=== PATIENT | female | born 1980 | race Asian ===

== ENCOUNTER 2020-03-24 07:31 | Outpatient (REF) | payer OTHER, SELFPAY ==
[2020-03-24 11:08] LABS: MANUAL DIFF FLAG NO
[2020-03-24 11:15] LABS: Basophils Absolute Auto 0.1 X10*3/uL (0.0-0.2); Basophils Percent Auto 0.7 % (0-2); Eosinophils Absolute Auto 0.3 X10*3/uL (0.0-0.4); Eosinophils Percent Auto 2.8 % (0-4); Hematocrit 39.1 % (37-47); Hemoglobin 12.7 g/dl (12.0-16.0); Imm Gran Abs Auto 0.05 X10*3/uL (0.00-0.03); Imm Gran Pct Auto 0.5 % (0.0-0.4); Lymphocytes Absolute Auto 3.5 X10*3/uL (1.2-4.9); Lymphocytes Percent Auto 32.6 % (20-40); Mean Corpuscular HGB Conc 32.5 g/dl (31.0-35.0); Mean Platelet Volume 10.6 fL (9.4-12.3); Monocytes Absolute Auto 0.7 X10*3/uL (0.1-1.2); Monocytes Percent Auto 6.1 % (2-11); Neutrophils Absolute Auto 6.2 X10*3/uL (2.0-8.3); Neutrophils Percent Auto 57.3 % (45-73); Platelet Count 259 X10*3/uL (160-400); Red Blood Count 4.89 X10*6/uL (4.20-5.50); Red Cell Distribution Width 12.3 % (11.0-16.0); White Blood Count 10.7 X10*3/uL (4.8-10.8)
[2020-03-24 11:37] LABS: Alanine Aminotransferase 17 U/L (0-31); Albumin Level 4.2 g/dL (3.5-5.0); Alkaline Phosphatase 63 U/L (39-117); Anion Gap 13 (12-20); Aspartate Amino Transferase 20 U/L (5-31); Bilirubin Total 0.8 mg/dL (0.0-1.0); Blood Urea Nitrogen 9 mg/dL (9-16); Calcium 8.5 mg/dL (8.4-10.2); Carbon Dioxide 26 mmol/L (22-29); Chloride 103 mmol/L (96-108); Cholesterol 188 mg/dL; Estimated Glomerular Filt Rate > 60; Glucose Fasting 96 mg/dL (60-99); HDL Cholesterol 42 mg/dL; LDL Cholesterol Calculated 122 mg/dl; Potassium 4.2 mmol/l (3.3-5.1); Sodium 138 mmol/L (135-145); Total Protein 7.3 g/dL (6.5-8.0); Triglycerides 120 mg/dL
[2020-03-24 11:59] LABS: TSH reflex Free T4 1.36 mIU/mL (0.32-4.0)
== END 2020-03-24 07:32 | disposition home or self-care (01) ==
LOC: HO.HMGCLDS 07:31
PROVIDERS: PCP Internal Medicine; Visit Provider Internal Medicine
DX: Z00.01 Encounter for general adult medical examination with abnormal findings (principal); E66.3 Overweight
CPT/HCPCS: 36415; 80053; 80061; 84443; 85025

== ENCOUNTER 2020-07-05 14:47 | Outpatient (REF) | payer OTHER, SELFPAY ==
[2020-07-06 09:07] LABS: BV Int Neg Control Negative (Negative); BV Int Pos Control Positive (Positive)
[2020-07-06 12:47] LABS: C. trachomatis RNA TMA NOT DETECTED (NOT DETECTED); N. gonorrhoeae RNA TMA NOT DETECTED (NOT DETECTED)
[2020-07-08 09:32] LABS: HPV mRNA E6/E7 rflx Not Detected (Not Detected)
== END 2020-07-05 14:48 | disposition home or self-care (01) ==
LOC: HO.LAB 14:47
PROVIDERS: PCP Internal Medicine; Visit Provider Obstetrics & Gynecology
DX: Z01.419 Encounter for gynecological examination (general) (routine) without abnormal findings (principal); Z11.3 Encounter for screening for infections with a predominantly sexual mode of transmission; Z11.8 Encounter for screening for other infectious and parasitic diseases
CPT/HCPCS: 36415; 87480; 87491; 87510; 87591; 87624; 87660; 88142

== ENCOUNTER → 2021-08-03 15:09 | Outpatient (BNVA) | payer OTHER, SELFPAY | PROVIDERS: PCP Internal Medicine; Visit Provider Advanced Practice Midwife ==

== ENCOUNTER 2022-02-11 16:04 | Outpatient (REF) | payer OTHER, SELFPAY ==
[2022-02-12 01:23] LABS: CT PCR NOT DETECTED (Not Detect.); NG PCR NOT DETECTED (Not Detect.)
[2022-02-12 12:22] LABS: BV Int Neg Control Negative (Negative); BV Int Pos Control Positive (Positive)
== END 2022-02-11 16:05 | disposition home or self-care (01) ==
LOC: HO.LNP 16:04
PROVIDERS: Visit Provider Advanced Practice Midwife
DX: Z11.3 Encounter for screening for infections with a predominantly sexual mode of transmission (principal)
CPT/HCPCS: 87480; 87491; 87510; 87591; 87660

== ENCOUNTER 2023-06-26 14:45 | Outpatient (AMB) | payer OTHER, SELFPAY ==
[2023-06-26 14:48] VITALS: BP 128/76; BMI 29.2
--- NOTE | 2023-06-26 14:48 | MHC.OFFVIS ---
Intake Vital Signs 06/26/23 14:48 Height 5 ft 4 in Weight 170 lb BMI 29.2 BP 128/76 Blood Pressure Location Rt brachial Position Sitting Intake Visit Reasons: Annual Do not reschedule Intake Note: Pt presents to the office today for an annual visit. Pt states she has no concerns about anything at this time. 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 Fuller but she has not seen her in a long time. 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 She had to miss her mammogram last year and it had to be rescheduled so many times because of school obligations that she does not know what happened to the order at this point so I will order a mammogram again. She had to go to [facility] last year because her father was dying and she was with him when he passed and she shared the details of this wonderful story. She currently uses condoms for control and is content with that. She does not want to have anymore children she has not aware specifically of ovulation symptoms because she feels she has discharge all the time so she does tend to use panty liners the discharge is in problematic it is just that it is there. She just feels wet she does not need any testing for infection or anything her last Pap smear was in 2020 and it was negative and she has never had an abnormal 1. She says Dr. Reeder delivered both of her boys. [facility] Medical History Denial Family History Mother Diabetes Maternal Grandmother Breast cancer Father Diabetes CVD (cardiovascular disease) Social History Alcohol intake: never Patient Tobacco Use Status: Never used Tobacco Gender identity: Female Female Reproductive History Menstrual Age of Menarche: 15 Duration of menses: 3-5 days Date of last menstrual period: 06/09/23 control method: none Total pregnancies: 2 Full term: 2 Number of Living Children: 2 Date of last pap smear: 07/06/20 History of abnormal pap smear: No History of STI: No Physical Exam Vital Signs: Last Vital Signs BP 128/76 06/26/23 14:48 BMI result Body Mass Index 29.2 Const General: healthy appearing, comfortable, no acute distress, well developed and alert Nutritional Appearance: average body habitus Orientation/consciousness: patient oriented x3 Limitations: no limitations HEENT Head: Yes normocephalic Neck Neck: Yes normal visual inspection Chest Chest palpation & inspection: normal inspection of the chest Breast/axilla inspection: normal inspection of the breasts and normal inspection of the axillae Breast/axilla palpation: normal palpation of the breasts and normal palpation of the axillae Resp Effort & Inspection: normal respiratory effort GI Inspection: Yes normal to inspection, No Abdominal wall edema and No distended Palpation (GI): Soft to palpation and nontender General: Yes bladder normal to palpation External Female Exam: normal external appearance and normal appearance of the urethra Speculum Exam - Vagina: normal appearance of the vagina, normal palpation and normal vaginal discharge Speculum Exam - Cervix: normal appearance of the cervix, normal palpation and nontender Bimanual exam- vagina & uterus: normal bimanual exam, normal palpation, uterine size normal, bladder normal to palpation, consistency normal, normal palpation, uterine mobility normal, uterine shape normal, No Cervical tenderness present, non-tender and no cervical motion tenderness Bimanual Exam- Adnexa, other: normal adnexae, no masses, normal and No adnexal tenderness Neuro General: patient oriented x3 Assessment & Plan Assessment & Plan (1) Breast cancer screening: Code(s): Z12.39 - Encounter for other screening for malignant neoplasm of breast (2) Well woman exam with routine gynecological exam: Code(s): Z01.419 - Encounter for gynecological examination (general) (routine) without abnormal findings (3) Cervical cancer screening: Code(s): Z12.4 - Encounter for screening for malignant neoplasm of cervix (4) control counseling: Code(s): Z30.09 - Encounter for other general counseling and advice on contraception Plan -----Discussed in this visit the following: healthy balanced diet, regular and consistent exercise, getting recommended health screens, doing the best she can for her particular health concerns, kegel exercises, pap smear screening and followup recommendations, mammography screening and SBE, normal changes in cycles in her life stage--- . Discussed symptoms of ovulation but since she feels like she is wet all the time she does not notice any distinguishing changes in her discharge throughout the month so she is content with condoms. I am reordering her mammogram so she can get that scheduled again. I thanked her for sharing her story of her flying to [facility] to be with her father when he passed. She will be due for her next Pap smear in 2025.. Orders: Orders MM tomosynthesis screening BI Today Z01.419 - Encounter for gynecological examination (general) (routine) without abnormal findings, Z12.31 - Encounter for screening mammogram for malignant neoplasm of breast, Z12.39 - Encounter for other screening for malignant neoplasm of breast, Z12.4 - Encounter for screening for malignant neoplasm of cervix, Z30.09 - Encounter for other general counseling and advice on contraception Coding Level of Care Code Est Pt Prev Care 40-64y(84244) Diagnoses Breast cancer screening Z12.39 Well woman exam with routine gynecological exam Z01.419 Cervical cancer screening Z12.4 control counseling Z30.09
== END 2023-06-26 16:18 | disposition home or self-care (01) ==
LOC: HO.HWSM 14:45
PROVIDERS: PCP Internal Medicine; Visit Provider Advanced Practice Midwife
DX: Z01.419 Encounter for gynecological examination (general) (routine) without abnormal findings (principal); Z30.09 Encounter for other general counseling and advice on contraception; Z12.39 Encounter for other screening for malignant neoplasm of breast
CPT/HCPCS: 99396

== ENCOUNTER → 2023-06-26 14:45 | Outpatient (BNVA) | payer OTHER, SELFPAY | PROVIDERS: PCP Internal Medicine; Visit Provider Advanced Practice Midwife ==

== ENCOUNTER 2024-09-20 14:45 | Outpatient (AMB) | payer OTHER, SELFPAY ==
--- NOTE | 2024-09-20 14:54 | MHC.OFFVIS ---
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 She is not having any other concerns but she did want to talk about what might be the signs and symptoms of pending menopause that she will be anticipating in the next few years. She has and has no concerns whatsoever about STIs they use condoms for control and she is comfortable with that and does not want to change or do anything different. She uses pads for her periods. She tends to use panty liners because she is bothered by the sensation of a vaginal discharge. She even sleeps with panty liners and underwear she likes feeling something tight around her, is in not even baggy underwear. She had mammograms ordered but the last time she was here and also for some other lab work that was done either here elsewhere she received bills from her insurance that according to her plan should have been paid and covered so she canceled her last mammogram so that she could get her insurance straightened out she did not want to incur another bill that inevitably would not be reimbursed as promised, which is what happened after last year's certified detention deputy visit. She has not seen her primary doctor in a couple of years but plans to make an appointment with her and she wanted me to not order a mammogram until she sees her primary and she will have her primary order it meanwhile she will check into her insurance issues. Her school keeps changing the insurance every year and so there is always a problem. [facility] Medical History Denial Family History Mother Diabetes Maternal Grandmother Breast cancer Father Diabetes CVD (cardiovascular disease) Social History Alcohol intake: never Patient Tobacco Use Status: Never used Tobacco Patient : No Gender identity: Female Female Reproductive History Menstrual Age of Menarche: 15 Duration of menses: 3-5 days Date of last menstrual period: 08/18/24 control method: none Total pregnancies: 2 Full term: 2 Date of last pap smear: 07/05/20 (negative pap smear, negative hpv ) History of abnormal pap smear: No History of STI: No Physical Exam Vital Signs: Last Vital Signs BP 124/72 09/20/24 14:59 BMI result Body Mass Index 27.6 Const General: healthy appearing, comfortable, no acute distress, well developed and alert Nutritional Appearance: average body habitus Orientation/consciousness: patient oriented x3 Limitations: no limitations HEENT Head: Yes normocephalic Neck Neck: Yes normal visual inspection Chest Chest palpation & inspection: normal inspection of the chest Breast/axilla inspection: normal inspection of the breasts and normal inspection of the axillae Breast/axilla palpation: normal palpation of the breasts and normal palpation of the axillae Resp Effort & Inspection: normal respiratory effort GI Inspection: Yes normal to inspection, No Abdominal wall edema and No distended Palpation (GI): Soft to palpation and nontender Other: Normal external exam she does have moderate to heavy menses today vagina pink and moist cervix multiparous pink smooth with normal appearing moderate to heavy menses. Cervix is long close thick mobile nontender uterus is small, mid position to anteverted mobile and nontender. Adnexa nontender good tone with Kegel. General: Yes bladder normal to palpation External Female Exam: normal external appearance and normal appearance of the urethra Speculum Exam - Vagina: normal appearance of the vagina, normal palpation and normal vaginal discharge Speculum Exam - Cervix: normal appearance of the cervix, normal palpation and nontender Bimanual exam- vagina & uterus: normal bimanual exam, normal palpation, uterine size normal, bladder normal to palpation, consistency normal, normal palpation, uterine mobility normal, uterine shape normal, No Cervical tenderness present, non-tender and no cervical motion tenderness Bimanual Exam- Adnexa, other: normal adnexae, no masses, normal and No adnexal tenderness Neuro General: patient oriented x3 Assessment & Plan Assessment & Plan (1) Well woman exam with routine gynecological exam: Code(s): Z01.419 - Encounter for gynecological examination (general) (routine) without abnormal findings Category: Medical (2) control counseling: Code(s): Z30.09 - Encounter for other general counseling and advice on contraception Category: Medical (3) Cervical cancer screening: Code(s): Z12.4 - Encounter for screening for malignant neoplasm of cervix Category: Medical (4) Breast cancer screening: Code(s): Z12.39 - Encounter for other screening for malignant neoplasm of breast Category: Medical (5) Problematic vaginal discharge: Comment: 09/20/2024. Patient says it is problematic only in that she does not like having a discharge at all but she is not having any actual abnormality that she wants checked Code(s): N89.8 - Other specified noninflammatory disorders of vagina Category: Medical Plan -----Discussed in this visit the following: healthy balanced diet, regular and consistent exercise, getting recommended health screens, doing the best she can for her particular health concerns, kegel exercises, pap smear screening and followup recommendations, mammography screening and SBE, normal changes in cycles in her life stage--- . Discussed the normal menstrual cycle and its changes in vaginal discharge and also other bodily changes that she notes for instance breast changes before her periods etc. Discussed what to expect in terms of sabiha menopausal changes in upcoming changes that many women experience including hot flashes possible irregularity to the menstrual cycle breast changes mood changes and vaginal dryness. Encouraged her to consider going without underwear and I definitely trying to limit panty liner use during the day she does wear cotton underwear that she gets in [place]. At her request I did not reorder her mammogram as she wants to straighten out the insurance 1st and she is going to ask her primary care provider to order it. In addition as she is not actually concerned about any vaginal infection or abnormal discharge I did not order any testing her discharge ( menses) appeared very normal and healthy consistent with where she was in her cycle. RTC 1 year Patient desires to schedule her mammogram when she sees her primary care provider Coding Level of Care Code Est Pt Prev Care 40-64y(01327) Diagnoses Well woman exam with routine gynecological exam Z01.419 control counseling Z30.09 Cervical cancer screening Z12.4 Breast cancer screening Z12.39 Problematic vaginal discharge N89.8
[2024-09-20 14:59] VITALS: BP 124/72; BMI 27.6
== END 2024-09-21 10:02 | disposition home or self-care (01) ==
LOC: HO.HWS 14:45
PROVIDERS: PCP Internal Medicine; Visit Provider Advanced Practice Midwife
DX: Z01.419 Encounter for gynecological examination (general) (routine) without abnormal findings (principal); N89.8 Other specified noninflammatory disorders of vagina
CPT/HCPCS: 99396; 99459